=== PATIENT | female | born 1990 | race Caucasian/White ===

== ENCOUNTER 2022-02-19 22:13 | Emergency (ER) | payer SELFPAY ==
[~2022-02-19] VITALS: Ht 167.6 cm; Wt 68.0 kg
[~2022-02-19 22:13] MED LIST: AMOX500C2 PO; CIPR7.5D9 OT
[2022-02-20] MEDS ORDERED: AMOX/CLAVULANATE 875 MG TABLET PO ONE
[2022-02-20] MEDS ORDERED: LIDOCAINE /MPF 1% VIAL 5 ML VIAL ONE (00:02)
[2022-02-20] MEDS ORDERED: IBUPROFEN 400 MG TABLET ONE (00:07)
[2022-02-20] MEDS ORDERED: AMOX/CLAVULANATE 875 MG TABLET ONE (00:07)
--- NOTE | 2022-02-20 00:10 | NUR ---
BIBFRIEND C/O DOG BITE TO UPPER LIP AROUND 10 PM. AWAKE AND ALERT X4 BREATHING EVEN AND UNLABORED. V/S WNL.
--- NOTE | 2022-02-20 00:12 | NUR ---
EMT AT BEDSIDE FOR WOUND CARE
--- NOTE | 2022-02-20 00:22 | NUR ---
md at bedside for sutures
[2022-02-20] MEDS ORDERED: IBUPROFEN 400 MG TABLET PO ONE (00:30)
[2022-02-20] MEDS ORDERED: AMOX-430 PO (00:40)
--- NOTE | 2022-02-20 00:46 | NUR ---
Patient discharged to home in stable condition. Written and verbal after care instructions given. Patient verbalizes understanding of instruction.
[2022-02-20 00:49] VITALS: BP 142/70
== END 2022-02-20 00:50 | disposition home or self-care (01) ==
LOC: ER 22:17
DX: S01.511A Laceration without foreign body of lip, initial encounter (principal); W54.0XXA Bitten by dog, initial encounter; Y93.89 Activity, other specified; Y92.89 Other specified places as the place of occurrence of the external cause; Y99.8 Other external cause status
CPT/HCPCS: 99283; 12011; J3490; A6403